=== PATIENT | male | born 1995 | race Caucasian/White ===

== ENCOUNTER 2019-12-15 13:39 | Emergency (ER) | payer OTHER, SELFPAY ==
[~2019-12-15] VITALS: Ht 188 cm; Wt 68.0 kg
[2019-12-15 13:40] VITALS: BP_SYST 118
--- NOTE | 2019-12-15 13:40 | NUR ---
TAKEN INTO TENT IN FRONT OF HOSPITAL, TRIAGED AND WILLL ASSUME CARE
--- NOTE | 2019-12-15 13:55 | NUR ---
DR RODARTE EVALUATING PT IN TRIAGE TENT
--- NOTE | 2019-12-15 14:10 | NUR ---
PT SWABBED FOR COVID
[2019-12-15 14:15] VITALS: BP_SYST 124
--- NOTE | 2019-12-15 14:15 | NUR ---
Patient given written and verbal discharge instructions and verbalizes understanding. ER MD discussed with patient the results and treatment provided. Patient in stable condition. ID arm band removed. Rx of MOTRIN given. Patient educated on pain management and to follow up with PMD. Pain Scale 0/10. Opportunity for questions provided and answered. Medication side effect fact sheet provided.
== END 2019-12-15 14:15 | disposition home or self-care (01) ==
LOC: SED 13:39
DX: U07.1 COVID-19 (principal)
CPT/HCPCS: 99283; C9803; U0003